=== PATIENT | female | born 1955 | race Caucasian/White ===

== ENCOUNTER 2016-08-02 06:29 | Day surgery (SDC) | payer OTHER ==
[2016-08-02] MEDS ORDERED: LIDOCAINE 1% 30 ML SDV MISC ONE (07:30)
--- NOTE | 2016-08-02 09:04 | CPIP ---
DATE OF PROCEDURE: 08/02/2016 PROCEDURE PERFORMED: Medtronic LINQ implantable loop recorder. INDICATION FOR PROCEDURE: Non-prodromal syncope. PROCEDURE: After informed consent was obtained, the patient was brought to the cardiology procedure room. The surgical site was marked. The patient was prepped and draped in a sterile fashion. 1% lidocaine was used to anesthetize the surgical site. The Medtronic scalpel blade provided in the ki t was used to make incision in the skin, which was modified with scalpel. The Medtronic implantable loop recorder was injected under the skin without difficulty. Hemostasis was achieved. Steri-Stri ps were placed. Sterile dressing was placed with Tegaderm. The patient tolerated the procedure wel l. There were no postoperative complications. Device interrogation post implant demonstrated normal device function with P-waves present. CONCLUSION: 1. Successful Medtronic LINQ implantable loop recorder deployment. 2. The patient will follow up in the office in 1 week. 3. The patient has been given postoperative instructions. /[id number]/MODL
== END 2016-08-02 08:41 | disposition home or self-care (01) ==
LOC: FCATH 06:29
PROVIDERS: ATTEND Internal Medicine Cardiovascular Disease
PROC: 0JH60PZ Insertion of Cardiac Rhythm Related Device into Chest Subcutaneous Tissue and Fascia, Open Approach (ICD-10-PCS; principal; 2016-08-02)
DX: R55 Syncope and collapse (principal); R25.2 Cramp and spasm
CPT/HCPCS: C1764

== ENCOUNTER 2016-12-03 11:03 | Observation (INO) | payer OTHER ==
[2016-12-03] MEDS ORDERED: BACITRACIN IRRIGATION/NS 50,000 UNITS/1,000 ML BTL IRR ONE (11:12)
[2016-12-03] MEDS ORDERED: ceFAZolin 2 GM/DEXTROSE 100 ML IV ONE (11:12)
[2016-12-03] MEDS ORDERED: NS 1,000 ML IV ONE (11:12)
[2016-12-03] MEDS ORDERED: DIAZEPAM 5 MG TAB PO ONE (11:12)
[2016-12-03] MEDS ORDERED: diphenhydrAMINE 25 MG CAP PO ONE (11:12)
--- NOTE | 2016-12-03 11:35 | CPEKG ---
Heart Rate: 60 RR Interval: 1000 P-R Interval: 132 QRSD Interval: 86 QT Interval: 424 QTC Interval: 424 P [place]: 76 QRS [place]: 57 T Wave [place]: 50 EKG Severity - NORMAL ECG - EKG Impression: SINUS RHYTHM Electronically Signed By: Maldonado Mina 03-Dec-2016 13:20:36
[2016-12-03 11:48] LABS: % IMMATURE GRANULYOCYTES 0.3 % (0.0-1.1); ABSOLUTE IMMATURE GRANULOCYTES 0.02 10^3/uL (0.00-0.10); ADD DIFF? NO; ADD MORPH? NO; ADD SCAN? NO; ATYPICAL LYMPHOCYTE FLAG 40 (0-99); FRAGMENT RBC FLAG 0 (0-99); HEMATOCRIT 39.7 % (38.0-47.0); HEMOGLOBIN 13.5 g/dL (12.6-16.3); LEFT SHIFT FLG 10 (0-99); LIPEMIA HEMOLYSIS FLAG 90 (0-99); MEAN CELL HEMOGLOBIN 32.4 pg (27.9-34.1); MEAN CELL VOLUME 95.2 fL (81.5-99.8); MEAN PLATELET VOLUME 11.1 fL (8.7-11.7); PLATELET CLUMPS FLAG 0 (0-99); PLATELET COUNT 184 10^3/uL (150-400); RED BLOOD CELL COUNT 4.17 10^6/uL (4.18-5.33); RED CELL DISTRIBUTION WIDTH 12.9 % (11.5-15.2)
[2016-12-03 11:57] LABS: INR 0.99 (0.83-1.16)
[2016-12-03 12:01] LABS: ANION GAP 12 mEq/L (8-16); CALCIUM 10.1 mg/dL (8.5-10.4); CARBON DIOXIDE 25 mEq/l (22-31); CHLORIDE 105 mEq/L (97-110); CREATININE 0.6 mg/dL (0.6-1.0); GLOMERULAR FILTRATION RATE > 60; GLUCOSE 81 mg/dL (70-100); POTASSIUM 3.9 mEq/L (3.5-5.2); SODIUM 142 mEq/L (134-144)
[2016-12-03] MEDS ORDERED: MIDAZOLAM 2 MG/2 ML VIAL ONE ×2 (13:26→14:09)
[2016-12-03] MEDS ORDERED: fentaNYL 100 MCG/2 ML INJ ONE ×2 (13:26→14:11)
[2016-12-03] MEDS ORDERED: LIDOCAINE 1% 300 MG/30 ML SDV ONE (13:26)
[2016-12-03] MEDS ORDERED: BUPIVACAINE 0.5% 30 ML SDV ONE (13:26)
[2016-12-03] MEDS ORDERED: IOPAMIDOL (ISOVUE-300) 100 ML BTL ONE (13:27)
--- NOTE | 2016-12-03 15:17 | CPEKG ---
Heart Rate: 57 RR Interval: 1053 P-R Interval: 156 QRSD Interval: 88 QT Interval: 444 QTC Interval: 433 QRS [place]: 50 T Wave [place]: 24 EKG Severity - ABNORMAL ECG - EKG Impression: ATRIAL-PACED RHYTHM Electronically Signed By: Kael Espinal 03-Dec-2016 16:28:13
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
[2016-12-03] MEDS: HYDROCODONE/APAP 5/325 TAB PO PRN ×2 (18:26→21:16)
[2016-12-04] MEDS: HYDROCODONE/APAP 5/325 TAB PO PRN ×2 (03:58→09:22)
[2016-12-04 05:11] LABS: % IMMATURE GRANULYOCYTES 0.2 % (0.0-1.1); ABSOLUTE IMMATURE GRANULOCYTES 0.01 10^3/uL (0.00-0.10); ADD DIFF? NO; ADD MORPH? NO; ADD SCAN? NO; ATYPICAL LYMPHOCYTE FLAG 0 (0-99); FRAGMENT RBC FLAG 0 (0-99); HEMATOCRIT 35.4 % (38.0-47.0); HEMOGLOBIN 11.9 g/dL (12.6-16.3); LEFT SHIFT FLG 0 (0-99); LIPEMIA HEMOLYSIS FLAG 80 (0-99); MEAN CELL HEMOGLOBIN 31.8 pg (27.9-34.1); MEAN CELL HEMOGLOBIN CONCENTR. 33.6 g/dL (32.4-36.7); MEAN CELL VOLUME 94.7 fL (81.5-99.8); MEAN PLATELET VOLUME 11.4 fL (8.7-11.7); PLATELET CLUMPS FLAG 0 (0-99); PLATELET COUNT 157 10^3/uL (150-400); RED BLOOD CELL COUNT 3.74 10^6/uL (4.18-5.33); RED CELL DISTRIBUTION WIDTH 12.7 % (11.5-15.2)
[2016-12-04 05:26] LABS: ANION GAP 10 mEq/L (8-16); CALCIUM 9.6 mg/dL (8.5-10.4); CARBON DIOXIDE 25 mEq/l (22-31); CHLORIDE 103 mEq/L (97-110); CREATININE 0.6 mg/dL (0.6-1.0); GLOMERULAR FILTRATION RATE > 60; GLUCOSE 74 mg/dL (70-100); POTASSIUM 4.2 mEq/L (3.5-5.2); SODIUM 138 mEq/L (134-144)
[2016-12-04 08:17] VITALS: BP 104/63; PULSE 74; RESP 16; TEMP 97.7; O2SAT 98
--- NOTE | 2016-12-04 08:35 | CPEKG ---
Heart Rate: 70 RR Interval: 857 P-R Interval: 152 QRSD Interval: 80 QT Interval: 388 QTC Interval: 419 QRS [place]: 50 T Wave [place]: 42 EKG Severity - ABNORMAL ECG - EKG Impression: ATRIAL-PACED RHYTHM EKG Impression: TALL R WAVE IN V2, CONSIDER RVH OR PMI Electronically Signed By: Maldonado Mina 04-Dec-2016 11:37:40
[2016-12-04] MEDS ORDERED: CHOLECALCIFEROL VIT D3 2,000 UNITS TAB/CAP PO SCH (09:00)
--- NOTE | 2016-12-04 17:00 | GDS ---
[f rep st] DISCHARGE SUMMARY DISCHARGE DIAGNOSES: 1. Syncope. 2. Bradycardia. 3. Status post dual-chamber pacemaker implant. BRIEF HISTORY: This is a 61-year-old woman who was referred to Dr. Mina by Dr. Juan for syncope without warning. She had a tilt-table test that demonstrated cardioinhibitory-type of neurocardiogenic syncope. She had sudden bradycardia noted on LINQ monitor. HOSPITAL COURSE: Dr. Mina implanted a dual-chamber Biotronik Edora pacemaker. The LINQ monitor was removed. The pacemaker is programmed : mode DDD CLS with a base rate of 50 beats per minute. Rate drop programming is CLS base rate + 40. CLS response is on high. On the day of discharge, the pacemaker was interrogated by Mejia from [employer]. Right atrial threshold is 0.5 at 0.4 milliseconds. Right ventricular threshold is 0.5 V at 0.4 milliseconds. The patient did well overnight. There is a small amount of tenderness at the pacemaker implant site. No chest pain or shortness of breath. Testing done: Chest x-ray demonstrated no pleural effusion. EKG demonstrates A -pacing with ventricular sensing at a rate of 72 beats per minute. LABORATORY DATA: WBC is 5.25, hemoglobin 11.9, hematocrit 35.4, platelets 157. Sodium 138, potassium 4.2, chloride 103, bicarb 25, BUN 13, creatinine 0.6, glucose is 74. PHYSICAL EXAMINATION: VITAL SIGNS: Blood pressure is 104/63, pulse is 74, respirations 16, temperature 36.5, O2 saturation on room air is 98%. GENERAL: She is alert and oriented, in no acute distress, sitting up in the chair. CARDIAC: Regular rate and rhythm, without a murmur, rub, or gallop. LUNGS: Clear to auscultation. SKIN: Pacemaker site has very mild swelling over the pocket. No ecchymosis. The gauze dressing is dry and intact with Opsite over in place. EXTREMITIES: Warm. No discoloration. DISCHARGE INSTRUCTIONS: Post- pacemaker implant activity restrictions were reviewed with the patient verbally, and she received written instructions also. FOLLOWUP: She has a pacemaker check scheduled December 09 at 9 o'clock at [facility] and a followup with Dr. Mina on December 11 at 2:45. /[id number]/MODL MTDD
== END 2016-12-04 10:49 | disposition home or self-care (01) ==
LOC: FCATH 11:03 → F2W 15:05
PROVIDERS: ADMIT Internal Medicine Cardiovascular Disease; ATTEND Internal Medicine Cardiovascular Disease
DX: R55 Syncope and collapse (principal); R00.1 Bradycardia, unspecified; Z82.49 Family history of ischemic heart disease and other diseases of the circulatory system
CPT/HCPCS: 33208; 33284; 71010; 71020; 93005; G0378; C1785; C1898; J0690; J2250; J3010; Q9967

== ENCOUNTER → 2017-05-22 | Outpatient (CLI) | payer OTHER | LOC: CIMAGING 10:09 | PROVIDERS: ATTEND Internal Medicine | DX: R22.1 Localized swelling, mass and lump, neck (principal) | CPT/HCPCS: 76536-PO ==

== ENCOUNTER → 2017-06-17 | Outpatient (CLI) | payer OTHER | LOC: FIMAGING 16:16 | PROVIDERS: ATTEND Internal Medicine Cardiovascular Disease | DX: R22.1 Localized swelling, mass and lump, neck (principal) ==